=== PATIENT | male | born 1950 | race Caucasian/White ===

== ENCOUNTER 2022-05-14 11:24 | Inpatient (IN) | payer OTHER ==
[~2022-05-14] VITALS: Ht 175.3 cm; Wt 81.8 kg
[2022-05-14] MEDS ORDERED: normal saline 1000ML IV soln IV ONE (13:45)
[2022-05-14] MEDS ORDERED: ondansetron/PF 4mg/2ml inj IV ONE (14:00)
[2022-05-14] MEDS ORDERED: morphine 4 MG/ML inj SYRINge IV ONE (14:00)
[2022-05-14] MEDS ORDERED: insulin regular, human 10 units/0.1 ml syringe SQ ONE (14:10)
[2022-05-14 14:15] LABS: BASOPHILS # (AUTO) 0.1 X10'3 (0-0.2); BASOPHILS % (AUTO) 0.5 % (0-1); EOSINOPHILS % (AUTO) 0 % (0-6); HEMATOCRIT 46.7 % (42.0-52.0); HEMOGLOBIN 15.5 g/dl (14.0-17.9); LYMPHOCYTES # (AUTO) 1.1 X10'3 (1.1-4.8); MEAN CORPUSCULAR HEMOGLOBIN 29.7 PG (27.0-31.0); MEAN CORPUSCULAR HGB CONC 33.2 g/dL (33.0-36.5); MEAN CORPUSCULAR VOLUME 89.4 FL (78-98); MEAN PLATELET VOLUME 7.6 FL (7.4-10.4); MONOCYTES # (AUTO) 1.1 X10'3 (0-0.9); MONOCYTES % (AUTO) 7.9 % (2-12); NEUTROPHILS # (AUTO) 11.6 X10'3 (1.8-7.7); NEUTROPHILS % (AUTO) 83.6 % (42-75); PLATELET COUNT 251 X10'3 (140-440); RED BLOOD COUNT 5.22 X10'6 (4.70-6.10); RED CELL DISTRIBUTION WIDTH 14.1 % (11.5-14.5); WHITE BLOOD COUNT 13.9 X10'3 (4.5-11.0)
[2022-05-14 14:29] LABS: ALANINE AMINOTRANSFERASE 21 U/L (12-78); ALBUMIN 3.2 G/DL (3.4-5.0); ALBUMIN/GLOBULIN RATIO 0.7 (1.1-1.5); ALKALINE PHOSPHATASE 69 IU/L (46-116); ANION GAP 12 (8-16); ASPARTATE AMINO TRANSFERASE 17 U/L (10-37); BILIRUBIN,TOTAL 0.7 MG/DL (0.1-1.0); BLOOD UREA NITROGEN 23 MG/DL (7-18); BUN/CREATININE RATIO 18.5 (5.4-32.0); CALCIUM 9.6 MG/DL (8.5-10.1); CHLORIDE 93 MMOL/L (99-107); CREATININE 1.24 MG/DL (0.60-1.10); GLUCOSE 445 MG/DL (70-104); POTASSIUM 4.1 MMOL/L (3.5-5.1); SODIUM 127 MMOL/L (135-145); TOTAL CARBON DIOXIDE 22.3 MMOL/L (24-32); TOTAL PROTEIN 8.1 G/DL (6.4-8.2); eGFR 57 ML/MIN
[2022-05-14] MEDS ORDERED: piperacillin/tazo 4.5gm/100ml 100 ML IV SCH (14:30)
[2022-05-14] MEDS ORDERED: normal saline 1000ML IV soln IVB ONE (14:40)
[2022-05-14] MEDS ORDERED: HYDROcodone/acetaminophen 5mg/325mg tablet PO PRN (15:00)
[2022-05-14] MEDS ORDERED: POTASSIUM BICARB 20meq eff tab 20 MEQ TABLET.EFF PO PRN ×2 (15:00)
[2022-05-14] MEDS ORDERED: diphenhydrAMINE 25mg capsule PO PRN (15:00)
[2022-05-14] MEDS ORDERED: bisacodyl 10mg suppository rectal RC PRN (15:00)
[2022-05-14] MEDS ORDERED: magnesium hydroxide 30ml (MOM) UD suspension PO PRN (15:00)
[2022-05-14] MEDS ORDERED: magnesium 4gm in 100ml NS 100 ML IV PRN (15:00)
[2022-05-14] MEDS ORDERED: morphine 2 MG/ML inj. syringe IV PRN ×2 (15:00)
[2022-05-14] MEDS ORDERED: acetaminophen 325mg tablet PO PRN (15:00)
[2022-05-14] MEDS ORDERED: dextrose 50%-water 50ml dispensing syringe IV PRN ×2 (15:00)
[2022-05-14] MEDS ORDERED: ondansetron/PF 4mg/2ml inj IV PRN (15:00)
[2022-05-14] MEDS ORDERED: glucagon, human recombinant 1mg kit SUBCUT PRN (15:00)
[2022-05-14] MEDS ORDERED: MESSAGE TO PHARMACY PO ONE (15:00)
[2022-05-14] MEDS ORDERED: magnesium Cl slow-release 64mg tablet PO PRN (15:00)
[2022-05-14] MEDS ORDERED: DEXTROSE 15 GM of carb/4 tabs (each vial/BOTTLE has 4 tablets) PO PRN ×2 (15:00)
[2022-05-14] MEDS ORDERED: magnesium 2GM in 50ml NS 50 ML IV PRN (15:00)
[2022-05-14] MEDS ORDERED: potassium CL 10mEq/100ml bag 100 ML IV PRN (15:00)
[2022-05-14] MEDS ORDERED: acetaminophen 650mg rectal suppository RC PRN (15:00)
[2022-05-14 15:41] LABS: CLARITY,URINE CLEAR (Clear); COLOR,URINE YELLOW (Yellow); GLUCOSE, URINE >=1000 mg/dl (Neg); KETONES,URINE 15 mg/dl (Neg); LEUKOCYTE ESTERASE ,URINE NEGATIVE (Neg); NITRITES, URINE NEGATIVE (Neg); OCCULT BLOOD,URINE SMALL (Neg); PH,URINE 5.5 (4.8-8.0); PROTEIN,URINE NEGATIVE (Neg); UROBILINOGEN,URINE 0.2 E.U/dL (0.2-1.0)
[2022-05-14 15:46] LABS: UA COLLECTION TYPE CLN CATCH MIDSTREAM
[2022-05-14 15:47] LABS: BACTERIA,URINE NONE SEEN /HPF (Neg); MUCUS STRANDS FEW /LPF (Neg); RBC,URINE 0-2 /HPF (0-2); SQUAMOUS EPITHELIAL CELL,UR FEW /LPF (FEW); WBC,URINE NONE SEEN /HPF (0-4)
[2022-05-14] MEDS: normal saline 1000ml 1,000 ML IV SCH ×2 (17:09→23:13)
[2022-05-14] MEDS: vancomycin/NS 1 GM ADD-VANTAGE 250 ML IV SCH (17:09)
--- NOTE | 2022-05-14 18:00 | NUR ---
Patient in room [facility]TH[facility] 4010. I have received report from HAYLEE Elena RN and had the opportunity to ask questions and assume patient care.
[2022-05-14 19:12] VITALS: BP 159/73
[2022-05-14] MEDS: K and/or MAG REPLACEMENT MC SCH (19:30)
[2022-05-14] MEDS: insulin Lispro (HumaLOG) vial - multi-dose SQ SCH (19:36)
[2022-05-14] MEDS: HYDROcodone/acetaminophen 10/325mg tab PO PRN ×2 (19:39→23:31)
[2022-05-14] MEDS: docusate sod 100mg capsule PO SCH (19:39)
[2022-05-14] MEDS: heparin, porcine 5000 units/ml vial SQ SCH (19:40)
[2022-05-14] MEDS: temazepam 15mg capsule PO PRN (21:34)
[2022-05-14] MEDS: insulin glargine (Lantus) pen - multi-dose SQ SCH (21:37)
[2022-05-14 22:00] VITALS: BP_SYST 121; BP_SYST 129; BP_DIAS 40; BP_DIAS 63
[2022-05-14] MEDS: piperacillin/tazo 3.375gm/50ml 50 ML IV SCH (23:13)
[2022-05-15] MEDS: vancomycin/NS 1 GM ADD-VANTAGE 250 ML IV SCH ×2 (02:52→15:20)
[2022-05-15 05:35] LABS: BASOPHILS % (AUTO) 0.1 % (0-1); EOSINOPHILS % (AUTO) 0.2 % (0-6); HEMATOCRIT 38.1 % (42.0-52.0); HEMOGLOBIN 12.8 g/dl (14.0-17.9); LYMPHOCYTES # (AUTO) 0.9 X10'3 (1.1-4.8); LYMPHOCYTES % (AUTO) 7.5 % (21-51); MEAN CORPUSCULAR HEMOGLOBIN 29.8 PG (27.0-31.0); MEAN CORPUSCULAR HGB CONC 33.7 g/dL (33.0-36.5); MEAN CORPUSCULAR VOLUME 88.4 FL (78-98); MEAN PLATELET VOLUME 7.7 FL (7.4-10.4); MONOCYTES # (AUTO) 1.1 X10'3 (0-0.9); MONOCYTES % (AUTO) 9.6 % (2-12); NEUTROPHILS # (AUTO) 9.7 X10'3 (1.8-7.7); NEUTROPHILS % (AUTO) 82.6 % (42-75); PLATELET COUNT 210 X10'3 (140-440); RED BLOOD COUNT 4.31 X10'6 (4.70-6.10); RED CELL DISTRIBUTION WIDTH 13.8 % (11.5-14.5); WHITE BLOOD COUNT 11.7 X10'3 (4.5-11.0)
[2022-05-15 06:02] LABS: ALANINE AMINOTRANSFERASE 22 U/L (12-78); ALBUMIN 2.4 G/DL (3.4-5.0); ALBUMIN/GLOBULIN RATIO 0.6 (1.1-1.5); ALKALINE PHOSPHATASE 96 IU/L (46-116); ANION GAP 8 (8-16); ASPARTATE AMINO TRANSFERASE 20 U/L (10-37); BILIRUBIN,TOTAL 0.5 MG/DL (0.1-1.0); BLOOD UREA NITROGEN 21 MG/DL (7-18); BUN/CREATININE RATIO 21.4 (5.4-32.0); CALCIUM 8.5 MG/DL (8.5-10.1); CHLORIDE 98 MMOL/L (99-107); CREATININE 0.98 MG/DL (0.60-1.10); GLUCOSE 238 MG/DL (70-104); MAGNESIUM 1.8 MG/DL (1.5-2.4); PHOSPHORUS 2.1 MG/DL (2.3-4.5); SODIUM 130 MMOL/L (135-145); TOTAL CARBON DIOXIDE 23.9 MMOL/L (24-32); TOTAL PROTEIN 6.3 G/DL (6.4-8.2); eGFR 75 ML/MIN
[2022-05-15 06:07] LABS: HEMOGLOBIN A1C 8.2 % (4.5-6.2)
--- NOTE | 2022-05-15 06:16 | NUR ---
Problems reprioritized. Patient report given, questions answered & plan of care reviewed with BRYNN Sanders.
--- NOTE | 2022-05-15 06:22 | NUR ---
REPORT RECEIVED FROM BRYNN BARON
[2022-05-15 06:41] VITALS: BP 134/66
[2022-05-15] MEDS: normal saline 1000ml 1,000 ML IV SCH ×2 (07:00→16:30)
[2022-05-15] MEDS: HYDROcodone/acetaminophen 10/325mg tab PO PRN ×4 (07:41→23:24)
[2022-05-15] MEDS: heparin, porcine 5000 units/ml vial SQ SCH ×2 (07:41→21:04)
[2022-05-15] MEDS: piperacillin/tazo 3.375gm/50ml 50 ML IV SCH ×3 (07:41→22:32)
[2022-05-15] MEDS: docusate sod 100mg capsule PO SCH ×2 (07:51→19:12)
[2022-05-15] MEDS: K and/or MAG REPLACEMENT MC SCH ×2 (08:00→19:12)
[2022-05-15] MEDS: insulin Lispro (HumaLOG) vial - multi-dose SQ SCH ×3 (08:47→18:56)
[2022-05-15] MEDS: mag hydrox/Alum hydrox/simeth 30ml oral suspension PO PRN (08:51)
[2022-05-15] MEDS ORDERED: ketorolac trometh. 30mg/ml inj. IV ONE (10:05)
[2022-05-15] MEDS: acetaminophen 325mg tablet PO PRN (11:04)
[2022-05-15 11:25] VITALS: BP 116/65
[2022-05-15] MEDS: ketorolac trometh. 30mg/ml inj. IV SCH ×2 (14:08→21:08)
--- NOTE | 2022-05-15 14:10 | NUR ---
Dicussed iv fluids with md, orders received to decrease from 125mls/hr to 75.
--- NOTE | 2022-05-15 16:57 | NUR ---
patient very shaky, blood glucose checked was 250, temperature checked was 98.2
[2022-05-15 18:00] VITALS: BP 137/57
--- NOTE | 2022-05-15 18:34 | NUR ---
Report given to BRYNN Jackman
[2022-05-15] MEDS: insulin glargine (Lantus) pen - multi-dose SQ SCH (21:02)
[2022-05-15] MEDS: temazepam 15mg capsule PO PRN (21:05)
[2022-05-15 22:00] VITALS: BP 99/44
[2022-05-16 02:00] VITALS: BP 94/38
[2022-05-16] MEDS ORDERED: VANCOMYCIN LEVEL IV ONE (02:30)
[2022-05-16] MEDS: ketorolac trometh. 30mg/ml inj. IV SCH ×4 (03:31→20:50)
[2022-05-16] MEDS: vancomycin/NS 1 GM ADD-VANTAGE 250 ML IV SCH (03:50)
[2022-05-16] MEDS: HYDROcodone/acetaminophen 10/325mg tab PO PRN ×2 (03:59→08:37)
[2022-05-16 04:09] LABS: GLUCOSE 122 MG/DL (70-104); POTASSIUM 3.7 MMOL/L (3.5-5.1); SODIUM 134 MMOL/L (135-145)
[2022-05-16 04:10] LABS: ALANINE AMINOTRANSFERASE 28 U/L (12-78); ALBUMIN/GLOBULIN RATIO 0.6 (1.1-1.5); ALKALINE PHOSPHATASE 46 IU/L (46-116); ANION GAP 9 (8-16); ASPARTATE AMINO TRANSFERASE 20 U/L (10-37); BILIRUBIN,TOTAL 0.3 MG/DL (0.1-1.0); BLOOD UREA NITROGEN 25 MG/DL (7-18); BUN/CREATININE RATIO 27.8 (5.4-32.0); CALCIUM 8.2 MG/DL (8.5-10.1); CHLORIDE 103 MMOL/L (99-107); MAGNESIUM 1.9 MG/DL (1.5-2.4); PHOSPHORUS 2.9 MG/DL (2.3-4.5); TOTAL CARBON DIOXIDE 22.4 MMOL/L (24-32); TOTAL PROTEIN 5.6 G/DL (6.4-8.2); VANCOMYCIN,TROUGH 6.8 UG/ML (6.0-14.0); eGFR 83 ML/MIN
[2022-05-16] MEDS: normal saline 1000ml 1,000 ML IV SCH ×2 (05:50→19:10)
[2022-05-16 05:53] LABS: BASOPHILS % (AUTO) 0.3 % (0-1); EOSINOPHILS # (AUTO) 0.2 X10'3 (0-0.9); EOSINOPHILS % (AUTO) 1.6 % (0-6); HEMATOCRIT 34.5 % (42.0-52.0); HEMOGLOBIN 11.5 g/dl (14.0-17.9); LYMPHOCYTES # (AUTO) 1.2 X10'3 (1.1-4.8); LYMPHOCYTES % (AUTO) 10.2 % (21-51); MEAN CORPUSCULAR HEMOGLOBIN 29.3 PG (27.0-31.0); MEAN CORPUSCULAR HGB CONC 33.3 g/dL (33.0-36.5); MEAN PLATELET VOLUME 7.7 FL (7.4-10.4); MONOCYTES # (AUTO) 0.6 X10'3 (0-0.9); NEUTROPHILS # (AUTO) 9.7 X10'3 (1.8-7.7); NEUTROPHILS % (AUTO) 82.9 % (42-75); PLATELET COUNT 199 X10'3 (140-440); RED BLOOD COUNT 3.92 X10'6 (4.70-6.10); RED CELL DISTRIBUTION WIDTH 13.6 % (11.5-14.5); WHITE BLOOD COUNT 11.7 X10'3 (4.5-11.0)
--- NOTE | 2022-05-16 06:21 | NUR ---
Report from received from BRYNN Jackman
[2022-05-16 07:00] VITALS: BP 97/45
[2022-05-16] MEDS: piperacillin/tazo 3.375gm/50ml 50 ML IV SCH ×3 (07:05→23:34)
[2022-05-16] MEDS: docusate sod 100mg capsule PO SCH ×2 (07:13→20:49)
[2022-05-16] MEDS: K and/or MAG REPLACEMENT MC SCH ×2 (08:00→20:00)
[2022-05-16] MEDS: insulin Lispro (HumaLOG) vial - multi-dose SQ SCH ×3 (08:33→18:43)
[2022-05-16] MEDS: heparin, porcine 5000 units/ml vial SQ SCH ×2 (08:37→20:51)
[2022-05-16 10:19] VITALS: BP 103/52
[2022-05-16] MEDS: VANCOmycin 1250MG/NS 250ml Bag 250 ML IV SCH (14:19)
[2022-05-16 18:00] VITALS: BP 145/84
--- NOTE | 2022-05-16 18:21 | NUR ---
Report given to BRYNN Jackman
[2022-05-16] MEDS: temazepam 15mg capsule PO PRN (20:49)
[2022-05-16] MEDS: insulin glargine (Lantus) pen - multi-dose SQ SCH (20:59)
[2022-05-16 21:15] VITALS: BP 112/98
[2022-05-17] MEDS: ketorolac trometh. 30mg/ml inj. IV SCH ×4 (02:01→20:25)
[2022-05-17] MEDS: VANCOmycin 1250MG/NS 250ml Bag 250 ML IV SCH ×2 (03:49→15:00)
--- NOTE | 2022-05-17 06:13 | NUR ---
received report from isa arteaga
[2022-05-17 06:30] VITALS: BP 120/61
[2022-05-17] MEDS: piperacillin/tazo 3.375gm/50ml 50 ML IV SCH ×2 (07:04→14:25)
[2022-05-17] MEDS: acetaminophen 325mg tablet PO PRN ×2 (07:05→20:52)
[2022-05-17 07:39] LABS: BASOPHILS % (AUTO) 0.3 % (0-1); EOSINOPHILS # (AUTO) 0.3 X10'3 (0-0.9); EOSINOPHILS % (AUTO) 3.3 % (0-6); HEMATOCRIT 35.8 % (42.0-52.0); LYMPHOCYTES # (AUTO) 1.2 X10'3 (1.1-4.8); LYMPHOCYTES % (AUTO) 11.5 % (21-51); MEAN CORPUSCULAR HGB CONC 33.5 g/dL (33.0-36.5); MEAN CORPUSCULAR VOLUME 89.5 FL (78-98); MEAN PLATELET VOLUME 7.9 FL (7.4-10.4); MONOCYTES # (AUTO) 0.7 X10'3 (0-0.9); MONOCYTES % (AUTO) 6.7 % (2-12); NEUTROPHILS # (AUTO) 8.1 X10'3 (1.8-7.7); NEUTROPHILS % (AUTO) 78.2 % (42-75); PLATELET COUNT 216 X10'3 (140-440); RED CELL DISTRIBUTION WIDTH 13.9 % (11.5-14.5); WHITE BLOOD COUNT 10.3 X10'3 (4.5-11.0)
[2022-05-17] MEDS: docusate sod 100mg capsule PO SCH ×2 (08:00→20:28)
[2022-05-17] MEDS: K and/or MAG REPLACEMENT MC SCH ×2 (08:00→20:00)
[2022-05-17] MEDS: normal saline 1000ml 1,000 ML IV SCH ×2 (08:30→21:50)
[2022-05-17 08:48] LABS: ANION GAP 8 (8-16); BILIRUBIN,TOTAL 0.4 MG/DL (0.1-1.0); BLOOD UREA NITROGEN 22 MG/DL (7-18); BUN/CREATININE RATIO 23.7 (5.4-32.0); CALCIUM 8.7 MG/DL (8.5-10.1); CHLORIDE 103 MMOL/L (99-107); CREATININE 0.93 MG/DL (0.60-1.10); GLUCOSE 97 MG/DL (70-104); MAGNESIUM 1.9 MG/DL (1.5-2.4); PHOSPHORUS 3.1 MG/DL (2.3-4.5); POTASSIUM 3.4 MMOL/L (3.5-5.1); SODIUM 135 MMOL/L (135-145); TOTAL CARBON DIOXIDE 23.7 MMOL/L (24-32); TOTAL PROTEIN 5.8 G/DL (6.4-8.2); eGFR 80 ML/MIN
[2022-05-17 08:49] LABS: ALANINE AMINOTRANSFERASE 53 U/L (12-78); ALBUMIN/GLOBULIN RATIO 0.5 (1.1-1.5); ALKALINE PHOSPHATASE 111 IU/L (46-116); ASPARTATE AMINO TRANSFERASE 45 U/L (10-37)
[2022-05-17] MEDS: insulin Lispro (HumaLOG) vial - multi-dose SQ SCH ×3 (09:00→20:40)
[2022-05-17] MEDS: heparin, porcine 5000 units/ml vial SQ SCH ×2 (09:02→20:30)
[2022-05-17] MEDS: HYDROcodone/acetaminophen 10/325mg tab PO PRN (09:12)
--- NOTE | 2022-05-17 09:43 | NUR ---
Called lab CRP reagent out and patients crp to be sent out, being sent out now
[2022-05-17 10:35] VITALS: BP 107/55
[2022-05-17] MEDS ORDERED: TETanus/Pertussis (Acell)/Diphther VAC/PF (Tdap-Adult) 0.5ml syringe IMVAC ONE ×2 (12:45→13:05)
--- NOTE | 2022-05-17 14:00 | NUR ---
discussed with this RN that vanco is to be discontinued. zosyn to continue
--- NOTE | 2022-05-17 14:30 | NUR ---
PAGER ID: [phone] MESSAGE: [id number], Luis you wanted katieo stopped right? he has 1500 dose, just want to make sure not to give it. thanks kira [phone]
--- NOTE | 2022-05-17 15:25 | NUR ---
PRESSURE ULCER EDUCATION: DEFINITION: A pressure ulcer is an area of skin that breaks down when you stay in one position too long. The constant pressure against the skin reduces the blood flow to that area and the affected tissue dies. CAUSES: "Being bedridden or in a wheelchair "Fragile skin "Having a chronic condition, such as diabetes or vascular disease "Inability to move certain parts of your body without assistance "Older age "Incontinence of urine or stool SYMPTOMS: "A reddened area that DOES NOT turn white when pressed on - this can be the beginning of a pressure ulcer "A blister, deep sore or a crater - these can be advanced pressure ulcers FIRST AID: "Relieve the pressure on this area "Keep the area clean and dry "Call your primary doctor if you see any of the above symptoms "DO NOT massage the area "DO NOT use a donut shaped or ring shaped pillow- these actually interfere with the blood flow and cause complications PREVENTION: "Check for pressure ulcers everyday "Change position at least every two hours to relieve pressure "Use items that help relieve pressure- pillows, sheepskin, foam padding, and powders. "Keep skin clean and dry "Eat healthy well balanced meals "Exercise daily IF YOU SEE ANY OF THESE SYMPTOMS WHILE IN THE HOSPITAL - TELL YOUR NURSE IMMEDIATELY. IF YOU SEE ANY OF THESE SYMPTOMS WHILE AT HOME OR HAVE ANY QUESTIONS OR CONCERNS ABOUT PRESSURE ULCERS - CALL YOUR PRIMARY DOCTOR IMMEDIATELY. Addendum: 05/17/22 at 1525 by Anika Pride LVN Amended: Links added.
[2022-05-17 18:00] VITALS: BP 138/63
--- NOTE | 2022-05-17 18:26 | NUR ---
Patient in room [facility]TH[facility] 4007. I have received report from Marilyn SWAIN and had the opportunity to ask questions and assume patient care. Addendum: 05/17/22 at 1902 by Liz Gonzalez RN Amended: Links added.
--- NOTE | 2022-05-17 18:28 | NUR ---
Report given to BRYNN Hill
[2022-05-18] MEDS: insulin glargine (Lantus) pen - multi-dose SQ SCH ×2 (00:06→21:27)
[2022-05-18] MEDS: piperacillin/tazo 3.375gm/50ml 50 ML IV SCH ×4 (01:42→23:17)
[2022-05-18] MEDS: ketorolac trometh. 30mg/ml inj. IV SCH ×4 (02:11→20:01)
[2022-05-18] MEDS ORDERED: VANCOMYCIN LEVEL IV ONE (02:30)
--- NOTE | 2022-05-18 02:30 | NUR ---
Vancomycin lab draw not needed at this time. Addendum: 05/18/22 at 0355 by Liz Gonzalez RN Amended: Links added.
[2022-05-18 03:37] LABS: BASOPHILS # (AUTO) 0.1 X10'3 (0-0.2); BASOPHILS % (AUTO) 0.8 % (0-1); EOSINOPHILS # (AUTO) 0.3 X10'3 (0-0.9); EOSINOPHILS % (AUTO) 3.2 % (0-6); HEMATOCRIT 34.5 % (42.0-52.0); HEMOGLOBIN 11.6 g/dl (14.0-17.9); LYMPHOCYTES # (AUTO) 1.1 X10'3 (1.1-4.8); LYMPHOCYTES % (AUTO) 11.7 % (21-51); MEAN CORPUSCULAR HEMOGLOBIN 29.7 PG (27.0-31.0); MEAN CORPUSCULAR HGB CONC 33.7 g/dL (33.0-36.5); MEAN CORPUSCULAR VOLUME 87.9 FL (78-98); MEAN PLATELET VOLUME 7.3 FL (7.4-10.4); MONOCYTES # (AUTO) 0.9 X10'3 (0-0.9); MONOCYTES % (AUTO) 9.5 % (2-12); NEUTROPHILS # (AUTO) 7.2 X10'3 (1.8-7.7); NEUTROPHILS % (AUTO) 74.8 % (42-75); PLATELET COUNT 263 X10'3 (140-440); RED BLOOD COUNT 3.92 X10'6 (4.70-6.10); RED CELL DISTRIBUTION WIDTH 14.1 % (11.5-14.5); WHITE BLOOD COUNT 9.7 X10'3 (4.5-11.0)
[2022-05-18 03:50] LABS: ALANINE AMINOTRANSFERASE 63 U/L (12-78); ALBUMIN/GLOBULIN RATIO 0.5 (1.1-1.5); ALKALINE PHOSPHATASE 137 IU/L (46-116); ANION GAP 8 (8-16); ASPARTATE AMINO TRANSFERASE 44 U/L (10-37); BILIRUBIN,TOTAL 0.2 MG/DL (0.1-1.0); BLOOD UREA NITROGEN 19 MG/DL (7-18); BUN/CREATININE RATIO 21.1 (5.4-32.0); CALCIUM 8.3 MG/DL (8.5-10.1); CHLORIDE 104 MMOL/L (99-107); GLUCOSE 82 MG/DL (70-104); MAGNESIUM 1.9 MG/DL (1.5-2.4); PHOSPHORUS 3.3 MG/DL (2.3-4.5); POTASSIUM 3.5 MMOL/L (3.5-5.1); SODIUM 135 MMOL/L (135-145); TOTAL CARBON DIOXIDE 23.1 MMOL/L (24-32); TOTAL PROTEIN 5.8 G/DL (6.4-8.2); VANCOMYCIN,TROUGH 6.3 UG/ML (6.0-14.0); eGFR 83 ML/MIN
[2022-05-18 04:00] LABS: HYPOCHROMASIA 1+; PLATELET ESTIMATE NORMAL
[2022-05-18 06:00] VITALS: BP 127/56
--- NOTE | 2022-05-18 06:35 | NUR ---
Problems reprioritized. Patient report given, questions answered & plan of care reviewed with Kip SWAIN. Addendum: 05/18/22 at 0737 by Liz Gonzalez RN Amended: Links added.
--- NOTE | 2022-05-18 07:02 | NUR ---
Patient in room [facility]TH[facility] 4010. I have received report from ayad moss and had the opportunity to ask questions and assume patient care.
[2022-05-18] MEDS: heparin, porcine 5000 units/ml vial SQ SCH ×2 (07:45→19:58)
[2022-05-18] MEDS: docusate sod 100mg capsule PO SCH ×2 (07:52→19:57)
[2022-05-18] MEDS: K and/or MAG REPLACEMENT MC SCH ×2 (08:00→20:00)
--- NOTE | 2022-05-18 09:31 | NUR ---
Initial: Pt admit for sepsis secondary to left elbow cellulitis. Pt seen by wound care, per report skin is intact. Pt on a CHO controlled diet and eating well with mostly 100% PO intake though with 0% PO intake of two meals, overall roughly averaging 85% PO intake throughout LOS. D/w dietary to send double eggs WB for additional protein to assist with satiety. LBM 7/3, with routine bowel care available though pt refuses at times per EMR. Will continue to follow and monitor need for further nutrition intervention. Recommendations: 1) Continue CHO controlled diet 2) Double eggs WB; monitor need for additional protein/ONS 3) Routine bowel care 4) Scaled weight this admit; subsequent weekly scaled weights Addendum: 05/18/22 at [address] Amended: Links added.
[2022-05-18 10:00] VITALS: BP 116/68
[2022-05-18] MEDS: normal saline 1000ml 1,000 ML IV SCH ×2 (11:10→23:18)
--- NOTE | 2022-05-18 13:05 | NUR ---
pt BS was low this am, someone gave him ice cream and it was 156. he isn't eating much, so he wanted to just check at dinner time to prevent his bs from going low. does not want insulin replacement
--- NOTE | 2022-05-18 15:32 | NUR ---
pt stated pain controlled with scheduled Ketoralac
[2022-05-18 18:00] VITALS: BP 176/62
--- NOTE | 2022-05-18 18:30 | NUR ---
Problems reprioritized. Patient report given, questions answered & plan of care reviewed with vanessa moss.
--- NOTE | 2022-05-18 18:39 | NUR ---
Patient in room [facility]TH[facility] 4010. I have received report from Carolina SWAIN and had the opportunity to ask questions and assume patient care.
[2022-05-18] MEDS: insulin Lispro (HumaLOG) vial - multi-dose SQ SCH ×2 (18:55→21:28)
[2022-05-18] MEDS: mag hydrox/Alum hydrox/simeth 30ml oral suspension PO PRN (20:00)
[2022-05-18] MEDS: temazepam 15mg capsule PO PRN (21:32)
[2022-05-18 22:00] VITALS: BP 144/65
[2022-05-19] MEDS: ketorolac trometh. 30mg/ml inj. IV SCH ×2 (02:09→08:00)
[2022-05-19] MEDS: mag hydrox/Alum hydrox/simeth 30ml oral suspension PO PRN (02:42)
[2022-05-19 06:00] VITALS: BP 158/76
--- NOTE | 2022-05-19 06:21 | NUR ---
Problems reprioritized. Patient report given, questions answered & plan of care reviewed with Carolina SWAIN.
--- NOTE | 2022-05-19 06:40 | NUR ---
Patient in room [facility]TH[facility] 4010. I have received report from vanessa moss and had the opportunity to ask questions and assume patient care.
[2022-05-19 07:44] LABS: BASOPHILS # (AUTO) 0.1 X10'3 (0-0.2); BASOPHILS % (AUTO) 0.8 % (0-1); EOSINOPHILS # (AUTO) 0.3 X10'3 (0-0.9); EOSINOPHILS % (AUTO) 3.3 % (0-6); HEMOGLOBIN 12.4 g/dl (14.0-17.9); LYMPHOCYTES % (AUTO) 11.5 % (21-51); MEAN CORPUSCULAR HEMOGLOBIN 30.3 PG (27.0-31.0); MEAN CORPUSCULAR HGB CONC 34.6 g/dL (33.0-36.5); MEAN CORPUSCULAR VOLUME 87.6 FL (78-98); MEAN PLATELET VOLUME 7.3 FL (7.4-10.4); MONOCYTES # (AUTO) 0.9 X10'3 (0-0.9); MONOCYTES % (AUTO) 11.3 % (2-12); NEUTROPHILS # (AUTO) 6.1 X10'3 (1.8-7.7); NEUTROPHILS % (AUTO) 73.1 % (42-75); PLATELET COUNT 301 X10'3 (140-440); RED CELL DISTRIBUTION WIDTH 13.9 % (11.5-14.5); WHITE BLOOD COUNT 8.4 X10'3 (4.5-11.0)
[2022-05-19] MEDS: heparin, porcine 5000 units/ml vial SQ SCH (08:00)
[2022-05-19] MEDS: K and/or MAG REPLACEMENT MC SCH (08:00)
[2022-05-19] MEDS: docusate sod 100mg capsule PO SCH (08:00)
[2022-05-19] MEDS: piperacillin/tazo 3.375gm/50ml 50 ML IV SCH (08:00)
[2022-05-19] MEDS: insulin Lispro (HumaLOG) vial - multi-dose SQ SCH (08:03)
[2022-05-19 08:15] LABS: ALANINE AMINOTRANSFERASE 57 U/L (12-78); ALBUMIN 2.2 G/DL (3.4-5.0); ALBUMIN/GLOBULIN RATIO 0.5 (1.1-1.5); ALKALINE PHOSPHATASE 132 IU/L (46-116); ANION GAP 7 (8-16); ASPARTATE AMINO TRANSFERASE 33 U/L (10-37); BILIRUBIN,TOTAL 0.3 MG/DL (0.1-1.0); BLOOD UREA NITROGEN 13 MG/DL (7-18); BUN/CREATININE RATIO 15.3 (5.4-32.0); CALCIUM 8.9 MG/DL (8.5-10.1); CHLORIDE 103 MMOL/L (99-107); CREATININE 0.85 MG/DL (0.60-1.10); GLUCOSE 192 MG/DL (70-104); MAGNESIUM 2.1 MG/DL (1.5-2.4); PHOSPHORUS 2.5 MG/DL (2.3-4.5); POTASSIUM 4.1 MMOL/L (3.5-5.1); SODIUM 135 MMOL/L (135-145); TOTAL CARBON DIOXIDE 24.6 MMOL/L (24-32); TOTAL PROTEIN 6.3 G/DL (6.4-8.2); eGFR 89 ML/MIN
[2022-05-19 10:00] VITALS: BP 133/64
[2022-05-19] MEDS ORDERED: AMOX-117 PO (11:00)
[2022-05-19] MEDS ORDERED: METF-900 PO (11:00)
--- NOTE | 2022-05-19 12:16 | NUR ---
charge nurse sending me to break they will do discharge
--- NOTE | 2022-05-19 12:35 | NUR ---
pt is stable for discharge, iv is dc cannula intact, pt did not want 1200 blood sugar since he was leaving, all belongings taken, charge nurse did the discharge info with him, bandages changed and sent a change of set with him in supplies, pt was told about home health, he was wheeled down in a wheel chair and left with a friend in private vehicle.
== END 2022-05-19 10:35 | disposition home health service (06) | DRG 871 ==
LOC: ER 11:25 → ED HOLD 15:05 → ORTHO 4S 18:56
PROVIDERS: ADMIT Family Medicine; ATTEND Family Medicine
PROC: 0R9M3ZZ Drainage of Left Elbow Joint, Percutaneous Approach (ICD-10-PCS; principal; 2022-05-14)
PROC: 3E0234Z Introduction of Serum, Toxoid and Vaccine into Muscle, Percutaneous Approach (ICD-10-PCS; 2022-05-17)
DX: A41.9 Sepsis, unspecified organism (principal); N17.0 Acute kidney failure with tubular necrosis; L03.114 Cellulitis of left upper limb; L02.414 Cutaneous abscess of left upper limb; E87.6 Hypokalemia; E11.9 Type 2 diabetes mellitus without complications; M71.122 Other infective bursitis, left elbow; Z23 Encounter for immunization; Z87.891 Personal history of nicotine dependence; Z83.3 Family history of diabetes mellitus
CPT/HCPCS: 36415; 71045; 73200; 80053; 80202; 81001; 82948; 83036; 83605; 83735; 84100; 84145; 84484; 85008; 85025; 86140; 87040; 87070; 87075; 87076; 87077; 87081; 87185; 87186; 90715; 96365; 96372; 96375; 97162; 97530; 99285; A4565; A6253; A6446; A6449; G0378; J1644; J1815; J1885; J2270; J2405; J2543; J3370; J7030

== ENCOUNTER 2024-04-15 08:44 | Day surgery (SDC) | payer OTHER ==
[2024-04-11 15:58] LABS: BASOPHILS % (AUTO) 0.8 % (0-1); EOSINOPHILS # (AUTO) 0.2 X10'3 (0-0.9); EOSINOPHILS % (AUTO) 3.4 % (0-6); LYMPHOCYTES # (AUTO) 1.6 X10'3 (1.1-4.8); LYMPHOCYTES % (AUTO) 27.8 % (21-51); MEAN CORPUSCULAR HEMOGLOBIN 30.9 PG (27.0-31.0); MEAN CORPUSCULAR HGB CONC 33.2 g/dL (33.0-36.5); MEAN CORPUSCULAR VOLUME 93.2 FL (78-98); MEAN PLATELET VOLUME 7.3 FL (7.4-10.4); MONOCYTES # (AUTO) 0.7 X10'3 (0-0.9); MONOCYTES % (AUTO) 11.8 % (2-12); NEUTROPHILS # (AUTO) 3.3 X10'3 (1.8-7.7); NEUTROPHILS % (AUTO) 56.2 % (42-75); PRE OP HEMATOCRIT 43.7 % (42.0-52.0); PRE OP HEMOGLOBIN 14.5 g/dL (14.0-17.9); PRE OP PLATELET COUNT 216 X10'3 (140-440); PRE OP WHITE BLOOD COUNT 5.9 10'3 (4.8-10.8); RED BLOOD COUNT 4.69 X10'6 (4.70-6.10)
[2024-04-11 16:19] LABS: ALBUMIN 3.9 G/DL (3.4-5.0); ALBUMIN/GLOBULIN RATIO 1.1 (1.1-1.5); ALKALINE PHOSPHATASE 48 IU/L (46-116); BLOOD UREA NITROGEN 25 MG/DL (7-18); BUN/CREATININE RATIO 19.1 (10.0-20.0); CALCIUM 9.5 MG/DL (8.5-10.1); CHLORIDE 103 MMOL/L (99-107); CREATININE 1.31 MG/DL (0.60-1.10); PRE OP ALT 22 U/L (30-65); PRE OP ANION GAP 5 (8-16); PRE OP AST 12 U/L (10-37); PRE OP BILIRUB, TOTAL 0.4 MG/DL (0.0-1.0); PRE OP GLUCOSE 107 MG/DL (70-104); PRE OP POTASSIUM 4.2 MMOL/L (3.4-5.1); PRE OP SODIUM 137 MMOL/L (135-145); TOTAL CARBON DIOXIDE 29.1 MMOL/L (24-32); TOTAL PROTEIN 7.6 G/DL (6.4-8.2); eGFR 53 ML/MIN
[~2024-04-15] VITALS: Ht 175.3 cm; Wt 90.5 kg
[2024-04-15] VITALS (13 sets, daily range): BP systolic 138–165; BP diastolic 66–90; PULSE 48–58; RESP 13–19; TEMP 97.1; O2SAT 96–100
[2024-04-15] MEDS: cefazolin 2gm/D5W 100mL 100 ML IV ONE (05:30)
[~2024-04-15 08:44] MED LIST: CHOL10008 PO; DICL100G31 TOP; EMPA25TA PO; INSU10VI SQ; LISI2.5T89 PO; PIOG30TA72 PO; ROSU20TA73 PO
[2024-04-15] MEDS: famotidine 20mg tablet PO ONE (09:46)
[2024-04-15] MEDS: ringers solution, lacted 1,000 ML IV SCH (09:48)
[2024-04-15] MEDS: BUPIVAcaine/PF 2.5mg/ml (0.25%) 10ml vial ONE (09:58)
[2024-04-15] MEDS ORDERED: meperidine/PF 25mg/ml syringe IV PRN ×3 (10:10)
[2024-04-15] MEDS ORDERED: morphine 4 MG/ML inj SYRINge IV PRN (10:10)
[2024-04-15] MEDS ORDERED: ringers solution, lacted 1,000 ML IV SCH (10:10)
[2024-04-15] MEDS ORDERED: ondansetron/PF 4mg/2ml inj IV PRN (10:10)
[2024-04-15] MEDS ORDERED: acetaminophen 1,000mg/100ml IV 100 ML IV ONE (10:10)
[2024-04-15] MEDS ORDERED: proCHLORperazine 10 MG/2 ml inj IV PRN (10:10)
[2024-04-15] MEDS ORDERED: morphine 2 MG/ML inj. syringe IV PRN (10:10)
[2024-04-15] MEDS ORDERED: propofol 10mg/ml 20ml vial IV ONE (10:35)
[2024-04-15] MEDS ORDERED: fentaNYL/PF 50MCG/1 ML 2ML syringe ONE (10:41)
[2024-04-15] MEDS ORDERED: midazolam 1 mg/ML 2ml injection ONE (10:41)
== END 2024-04-15 12:49 | disposition home or self-care (01) ==
LOC: PAS 08:44
PROVIDERS: ATTEND Orthopaedic Surgery Hand Surgery
DX: M65.341 Trigger finger, right ring finger (principal); M65.342 Trigger finger, left ring finger; M65.332 Trigger finger, left middle finger; I44.7 Left bundle-branch block, unspecified; E11.22 Type 2 diabetes mellitus with diabetic chronic kidney disease; N18.30 Chronic kidney disease, stage 3 unspecified; E78.5 Hyperlipidemia, unspecified; I20.9 Angina pectoris, unspecified; I25.2 Old myocardial infarction; M19.90 Unspecified osteoarthritis, unspecified site; Z87.891 Personal history of nicotine dependence; Z85.89 Personal history of malignant neoplasm of other organs and systems; Z79.4 Long term (current) use of insulin; Z79.899 Other long term (current) drug therapy; Z98.890 Other specified postprocedural states
CPT/HCPCS: 26055; 36415; 80053; 82948; 85025; 93005; J0690; J2250; J2704; J3010; J3490; J7030; J7120; Z7506; Z7512; A4215; A6449